=== PATIENT | female | born 1960 | race Caucasian/White ===

== ENCOUNTER 2017-08-03 09:06 | Emergency (ER) | payer SELFPAY ==
[2017-08-03 09:08] VITALS: BP 127/80; PULSE 88; RESP 16; TEMP 36.7; O2SAT 100; BMI 19.8
--- NOTE | 2017-08-03 09:36 | ED.DCSUM_ITS ---
- ER Visit Summary Date of Service: 08/03/17 Chief Complaint: Lump History of Present Illness: The patient is a 56 F who does report recent URI symptoms with congestion. Patient noted a lump behind her left ear 10 days ago. It is slowly increasing in size. The area is painful to palpation. She has not noted fever. Physical Examination: Vital signs are unremarkable. Patient sitting upright in bed no acute distress. She is nontoxic appearing. Head neck examination reveals TMs to be clear bilaterally. Posterior pharynx examination reveals mild posterior pharyngeal drainage. Uvula is midline. She does have bilateral anterior cervical lymphadenopathy. She also has a large left posterior auricular lymph node measuring approximately 3 cm in diameter. There is no overlying skin change noted. Heart is regular rate and rhythm. Lung sounds are clear. Abdomen is soft nontender. Test Results: [] Emergency Department Course and Treatment: Patient be treated with a course of clindamycin. As she does currently have URI symptoms, I believe this is all lymphadenitis from her illness. She was advised that she needs to follow-up to ensure resolution following course of antibiotics. Treatment Plan: [] Disposition: Discharge Impression: Cervical lymphadenitis This note was generated with [employer] dictation software. It may contain incorrect words, spelling, and punctuation that were not noted in review of the chart prior to signing ED Disposition - Plan for ED Patient: Chief Complaint: Other, Pain/Inj Referrals: Georgette Martines MD [Primary Care Provider] -
--- NOTE | 2017-08-03 09:36 | ED.DEP ---
ED Disposition - Plan for ED Patient: Disposition: Home or Assisted Living Chief Complaint: Other, Pain/Inj Instructions: ED Cervical Adenitis Abx Tx Prescriptions: Clindamycin [Cleocin] 300 mg PO 4X/DAY #80 capsule Referrals: eGorgette Martines MD [Primary Care Provider] - 1-2 Weeks
== END 2017-08-03 10:12 | disposition home or self-care (01) ==
PROVIDERS: Emergency Provider Emergency Medicine; Family Provider Internal Medicine; PCP Internal Medicine
DX: I88.9 Nonspecific lymphadenitis, unspecified (principal); Z72.0 Tobacco use
CPT/HCPCS: 99282

== ENCOUNTER → 2017-09-18 08:02 | Outpatient (CLI) | payer SELFPAY ==
[2017-09-18] VITALS (7 sets, daily range): BP systolic 72–101; BP diastolic 47–60; PULSE 79–98; RESP 16–18; TEMP 36.3–37.1; O2SAT 100; BMI 19.3
[2017-09-18] MEDS: Acetaminophen 325 MG Tablet 650 MG PO (08:09)
== END ==
PROVIDERS: Family Provider Internal Medicine; PCP Internal Medicine; Visit Provider Internal Medicine Hematology & Oncology
DX: Z51.89 Encounter for other specified aftercare (principal)
CPT/HCPCS: 36430; 86850; 86900; 86920; 86922; J7040; P9016; A4216

== ENCOUNTER → 2017-09-27 10:25 | Outpatient (CLI) | payer SELFPAY ==
[2017-09-27 10:41] VITALS: BP 106/77; PULSE 87; RESP 16; TEMP 36.7; O2SAT 100; BMI 20.4
[2017-09-27 11:20] VITALS: BP 122/74; PULSE 102; RESP 16; TEMP 36.5; O2SAT 99
[2017-09-27 12:25] VITALS: BP 130/74; PULSE 113; RESP 16; TEMP 38.4; O2SAT 98
[2017-09-27] MEDS: Acetaminophen 500 MG Tablet 1000 MG PO (12:58)
[2017-09-27 13:20] VITALS: BP 119/73; PULSE 109; RESP 16; TEMP 39.1; O2SAT 99
[2017-09-27 13:50] VITALS: BP 114/63; PULSE 114; RESP 16; TEMP 39.4; O2SAT 98
--- NOTE | 2017-09-27 14:05 | NURSING ---
MIKE LOCKE ACCOMPANYING PATIENT TO ED VIA WHEELCHAIR. PT STABLE, VERBALIZES UNDERSTANDING OF NEED FOR EVALUATION. PT NOTIFIED FAMILY.
== END ==
PROVIDERS: Visit Provider Internal Medicine Hematology & Oncology
DX: Z51.89 Encounter for other specified aftercare (principal)
CPT/HCPCS: 36430; 86850; 86900; 86920; 86922; J7040; P9016

== ENCOUNTER 2017-09-27 14:06 | Emergency (ER) | payer SELFPAY ==
[2017-09-27 14:07] VITALS: BP 99/61; PULSE 105; RESP 16; TEMP 37.4; O2SAT 98; BMI 20.4
--- NOTE | 2017-09-27 14:24 | RAD_ITS ---
STUDY: X-RAY CHEST REASON FOR EXAM: Female, 57 years old. Fever. Reaction to blood transfusion. TECHNIQUE: Single AP portable view of the chest. COMPARISON: Comparison is made with prior study dated August 22, 2013. FINDINGS: There is evidence of a 10 cm x 10.5 cm rounded soft tissue mass in the right upper lobe. Mild increased markings at the right lung base. A neoplastic process should be ruled out. There is no demonstrated pleural abnormality. Normal size heart. Normal mediastinum and lydia. Normal visualized pulmonary arteries. Normal visualized aortic arch and descending thoracic aorta. There is a dextroscoliosis of the thoracic spine. Normal visualized ribs, clavicles, and shoulders. There is no demonstrated abnormality of the visualized soft tissue structures of the upper abdomen. RAD/Chest 1 View (Portable) IMPRESSION: 10 cm x 10.5 cm rounded soft tissue mass in the right upper lobe with mild increased markings at the right lung base. A neoplastic process should be ruled out. Electronically Signed: Alistair Dee MD at 14:52 EDT Tel [phone], Service support ,
--- NOTE | 2017-09-27 14:25 | CT_ITS ---
STUDY: CT SOFT TISSUE NECK WITH CONTRAST REASON FOR EXAM: Female, 57 years old. Abscess RADIATION DOSAGE (If Supplied By Facility): CTDIvol = ( 13.42 ) mGy, DLP = ( 301.45 ) mGycm TECHNIQUE: The patient was scanned in a multi-detector CT scanner. High resolution transaxial imaging was performed following intravenous administration of 75 ml of Isovue 370 contrast material. Sagittal and coronal images were reconstructed. Individualized dose optimization techniques were used for this CT. COMPARISON: None. FINDINGS: Normal bilateral parotid glands. 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 Normal bilateral parapharyngeal spaces. Normal bilateral carotid spaces. Normal bilateral sublingual and submandibular glands and spaces. Normal visualized nasopharynx. Normal retropharyngeal space. Normal perivertebral space. Normal visualized bilateral faucial tonsils. The visualized tongue, tongue base and oropharynx are normal. There is a very large thick-walled heterogeneously enhancing mass with central low-attenuation in the left posterior triangle measuring approximately 9.8 x 6.3 x 7.7 cm extending from the level of the mastoid tip to the level of the thyroid which may be consistent with an abscess or necrotic adenopathy. Immediately anterior to the lesion at the level of the hyoid is a second smaller a similar-appearing lesion measuring 1.45 x 2.05 cm also possibly representing inflammatory process or node The mass is displacing the carotids and jugular vein anteriorly and towards the midline.. The visualized cervical lymph nodes (levels I-) are within normal size limits, and maintain normal morphology. There is no demonstrated solid or cystic mass lesion. There is no abnormal contrast enhancement. Normal epiglottis, bilateral vallecula and hypopharynx. The pre-epiglottic and paraglottic adipose spaces are normal. Normal visualized bilateral piriform sinuses, aryepiglottic folds, vocal cords, and arytenoid-cricoid articulations. Normal subglottic trachea. Normal bilateral lobes of the thyroid gland. Focal nodular pleural thickening or pleural-based mass is seen in the right apex Normal visualized paranasal sinuses. Cervical spine demonstrates mild spondylosis Incidental note is made of a small homogeneously enhancing lesion within the left temporal lobe of indeterminate etiology possibly representing meningioma as it appears to be contiguous with the temporal bone. However, metastatic lesion not excluded CT/Soft Tissue Neck WITH Contrast IMPRESSION: Findings which may be consistent with massive abscess or necrotic adenopathy in the left posterior triangle extending from the mastoid tip to the level of the thyroid. There is a second smaller similar-appearing lesion immediately anterior to the main mass at the level of the hyoid bone Incidental finding of enhancing nodule in the left temporal lobe. Cannot exclude metastatic disease versus meningioma. Recommend dedicated CT or MRI of the brain for further evaluation Electronically Signed: Jeromy Arreola MD at 16:34 EDT , Service support ,
[2017-09-27 15:00] LABS: Absolute Lymphocyte Count 2.01 X10^3/ul (0.83-4.51); Absolute Neutrophil Count 43.8 X10^3/uL (2.0-7.7); Basophil# 0.02 X10^3/uL; Eosinophil# 0.38 X10^3/uL; Eosinophils% 0.8 % (0-5); Hematocrit 23.8 % (37-47); Hemoglobin 7.6 g/dl (12.0-15.0); Lymphocyte # 2.01 X10^3/ul (4.0); Lymphocyte % 4.3 % (19-41); Mean Corp Hgb Conc 31.9 g/gl (32-36); Mean Corpuscular Hgb 29.7 pg (27.0-32.0); Monocyte# 0.78 X10^3/uL; Monocyte% 1.7 % (0-10); Neutrophil # 43.76 X10^3/uL (2.7-7.7); Neutrophil % 92.6 % (47-70); Platelet Count 411 K/mm3 (150-450); RBC Distribution Width CV 15.8 % (11.6-14.6); RBC Distribution Width SD 53.5 fl (35.1-43.9); Red Blood Count 2.56 M/mm3 (4.2-5.4)
--- NOTE | 2017-09-27 15:02 | NURSING ---
LAB CALLED WITH A CRITICAL OF A WBC OF 47.2 AND H OF 7.6
[2017-09-27 15:03] LABS: Differential Indicated SCAN CRITERIA MET; POSITIVE COUNT YES; POSITIVE DIFFERENTIAL YES; POSITIVE MORPHOLOGY NO; White Blood Count 47.2 K/mm3 (4.4-11.0)
[2017-09-27 15:06] LABS: International Normalized Ratio 1.1; Prothrombin Time (Protime)PT. 14.6 SECONDS (11.7-14.9)
[2017-09-27 15:07] LABS: Partial Thromboplast Time 29.6 Seconds (24.1-36.2)
[2017-09-27 15:18] LABS: ALB/GLOB Ratio 0.6 RATIO (0.9-2.4); AST(SGOT) 37 U/L (15-37); Alanine Aminotransfer ALT/SGPT 33 U/L (13-56); Albumin, Serum 2.1 g/dL (3.2-5.0); Alkaline Phosphatase 329 U/L (45-117); Anion Gap 8 (5-15); BUN 10 mg/dL (7-18); Chloride 102 mmol/L (98-107); Creatinine, Serum 0.45 mg/dL (0.55-1.02); EST Glomerular Filtration Rate 151 mL/min (>60); Est Glom Filt Rate - Afr Amer 183 mL/min (>60); Estimated Creatinine Clearance 117.53 ml/min; Globulin 3.7 g/dL (2.2-4.2); Glucose 96 mg/dL (74-106); Potassium 3.6 mmol/L (3.5-5.1); Protein, Total 5.8 g/dL (6.4-8.2); Sodium Level 136 mmol/L (136-145)
[2017-09-27] MEDS: 0.9% Normal Saline 1,000 ML IV.SOLN. 1600 ML IV (15:20)
[2017-09-27 15:24] LABS: Lactic Acid 1.6 mmol/L (0.4-2.0)
[2017-09-27 15:25] LABS: Differential Comment SCANNED
[2017-09-27] MEDS: oxyCODONE 5 MG Tablet 10 MG PO (15:42)
[2017-09-27 15:45] VITALS: BP 111/68; PULSE 91; RESP 20; TEMP 37.1; O2SAT 98
[2017-09-27 16:05] VITALS: BP 111/67; PULSE 91; RESP 17; O2SAT 95
--- NOTE | 2017-09-27 16:49 | ED.DCSUM_ITS ---
- ER Visit Summary Date of Service: 09/27/17 Chief Complaint: Fever History of Present Illness: The patient is a [address] Laws and Wily Cosme. She has a history of lung cancers with metastases and a large left neck mass. Patient was in infusion services getting a unit of packed red blood cells when she developed a fever today. She states her fever was 103? there. She was given Tylenol. States that she now feels back to her baseline and has no complaints. She reports that she has a sharp left-sided neck pain that is 10 out of 10 severity. She has not taken her Percocet yet today for this. Patient reports that she actually saw Dr. Page this morning for this left neck mass and it was felt that it was not an abscess. She is scheduled to see the radiation oncologist for focal radiation for this. Review of systems: General: No chills, cold sweats. Cardiovascular: No chest pain, palpitations. Respiratory: No shortness of breath, dyspnea on exertion. Gastrointestinal: No abdominal pain, nausea, vomiting, diarrhea, melena, or hematochezia. Genitourinary: No dysuria, frequency, hematuria. Skin: No rash. Neuro: No headache, numbness, weakness. Physical Examination: Vitals: Stable. Afebrile. General: Well-nourished and well-developed. Head: Normocephalic atraumatic. Neck: Large mass lateral left neck with a necrotic surface. There is no induration or fluctuance that is appreciable.. Cardiovascular: Regular rate and rhythm. No murmurs. Respiratory: No respiratory distress. Clear to auscultation bilaterally. Abdominal: Soft, nontender, nondistended, normal bowel sounds. No guarding, rebound, or peritoneal signs. Back: Nontender. Extremities: Nontender, no edema. Skin: Normal color, no rash. Neurologic: Alert and oriented ?3. Cranial nerves II through XII are intact. Normal strength and sensation. Psych: Normal affect. Test Results: CBC is remarkable for a white count of 47.2 (it was 77 yesterday) H&H is 7.6 and 23.8, segmented neutrophils are 93, lymphocytes of 4. Chem-7 more for creatinine 0.5 or 5. LFTs marked total protein 5.8 albumin 2.1. Alk phos of 329. INR is 1.1. PTT is 29.6. Lactic acid is 1.6. Clinical Impression(s) from Imaging Studies Chest X-Ray 09/27/17 14:24 IMPRESSION: 10 cm x 10.5 cm rounded soft tissue mass in the right upper lobe with mild increased markings at the right lung base. A neoplastic process should be ruled out. Electronically Signed: Alistair Dee MD at 14:52 EDT Tel [phone], Service support , Soft Tissue Neck CT 09/27/17 14:25 IMPRESSION: Findings which may be consistent with massive abscess or necrotic adenopathy in the left posterior triangle extending from the mastoid tip to the level of the thyroid. There is a second smaller similar-appearing lesion immediately anterior to the main mass at the level of the hyoid bone Incidental finding of enhancing nodule in the left temporal lobe. Cannot exclude metastatic disease versus meningioma. Recommend dedicated CT or MRI of the brain for further evaluation Electronically Signed: Jeromy Arreola MD at 16:34 EDT , Service support , Emergency Department Course and Treatment: Patient was treated with oxycodone is resting comfortably. She remains afebrile and feels well. She would like to go home. Treatment Plan: Patient was discussed with Dr. Pappas. She will be discharged instructions to follow-up with Dr. Pederson next week for further evaluation and treatment. Return to emerge department for fever, or any other concerns. Disposition: To home in improved and stable condition. Impression: 1. Lung cancer with metastases. 2. Febrile nonhemolytic transfusion reaction. This note was generated with [employer] software. It may contain incorrect words, spelling, and punctuation that were not noted in review of the chart prior to signing ED Disposition - Plan for ED Patient: Disposition: Home or Assisted Living Chief Complaint: Allergic Reaction Instructions: Blood and Blood Product Transfusions for Cancer Referrals: Ajay Pederson MD [STAFF PHYSICIAN] - Keep Shwetha appointment
[2017-09-27 16:57] VITALS: BP 116/68; PULSE 91; RESP 17; O2SAT 97
[2017-09-27 17:13] VITALS: BP 116/64; PULSE 91; RESP 18; O2SAT 99
[2017-09-27 17:34] LABS: Bacteria 0 SEEN /hpf (None Seen); Mucous, Urine 0 SEEN /hpf (<or=2+); Red Blood Cells-Urine 0 SEEN /hpf (0-5); Squamous Epithelial Cells - UA 0 SEEN /hpf (5-10)
[2017-09-27 17:58] LABS: Color, Urine Yellow (Yellow); Glucose, Dipstick Normal (Normal); Ketone-Dipstick Negative (Negative); Leukocyte Esterase-Dipstick Negative /ul (Negative); Nitrite-Dipstick Negative (Negative); Occult Blood-Urine Negative /ul (Negative); Protein-Dipstick Negative (Negative); Specific Gravity, Urine 1.005 (1.002-1.030); Urine Bilirubin Dipstick Negative (Negative); Urine Clarity Sl. Cloudy (Clear); Urine Urobilinogen Normal (Normal)
[2017-09-27 18:16] LABS: White Blood Cells 0-5 SEEN /hpf (0-5)
[2017-10-01 14:01] LABS: Pathologist Review Reviewed
== END 2017-09-27 17:15 | disposition home or self-care (01) ==
LOC: ED 14:53
PROVIDERS: Emergency Provider Emergency Medicine; PCP Physician Assistant
DX: R50.84 Febrile nonhemolytic transfusion reaction (principal); C34.90 Malignant neoplasm of unspecified part of unspecified bronchus or lung; C79.9 Secondary malignant neoplasm of unspecified site; Z87.891 Personal history of nicotine dependence
CPT/HCPCS: 70491; 71045; 80053; 81001; 83605; 85025; 85610; 85730; 87040; 87086; 99285; J7030; Q9967; A4216

== ENCOUNTER → 2017-10-08 12:35 | Outpatient (CLI) | payer SELFPAY ==
--- NOTE | 2017-10-08 12:35 | DT_ITS ---
This patient was seen during an EMR downtime October 07, 2017 - October 14, 2017. This patient may have a combination of paper and electronic documentation or all paper documentation. All documentation is viewable within the e-chart portion of [employer] for each patient visit.
[2017-10-15 15:34] LABS: Bacteria 0 SEEN /hpf (None Seen); Color, Urine Amber (Yellow); Glucose, Dipstick Normal (Normal); Ketone-Dipstick Negative (Negative); Leukocyte Esterase-Dipstick Negative /ul (Negative); Nitrite-Dipstick Negative (Negative); Occult Blood-Urine Negative /ul (Negative); Protein-Dipstick 30 mg/dl (Negative); Red Blood Cells-Urine 0 SEEN /hpf (0-5); Specific Gravity, Urine 1.015 (1.002-1.030); Squamous Epithelial Cells - UA 0 SEEN /hpf (5-10); Urine Bilirubin Dipstick 3 mg/dL (Negative); Urine Clarity Clear (Clear); Urine Urobilinogen Normal (Normal); White Blood Cells 0-5 SEEN /hpf (0-5)
[2017-10-15 15:35] LABS: Hyaline Cast 0-5 SEEN /lpf (0-5); Mucous, Urine RARE /hpf (<or=2+)
== END ==
PROVIDERS: Visit Provider Internal Medicine Hematology & Oncology
DX: R35.0 Frequency of micturition (principal)
CPT/HCPCS: 81001

== ENCOUNTER → 2017-10-24 09:30 | Outpatient (CLI) | payer SELFPAY ==
[2017-10-24] VITALS (7 sets, daily range): BP systolic 92–106; BP diastolic 64–69; PULSE 101–124; RESP 16–18; TEMP 36.4–37.7; O2SAT 97–98; BMI 16.8
[2017-10-24] MEDS: Acetaminophen 325 MG Tablet 650 MG PO (10:21)
== END ==
PROVIDERS: Family Provider Physician Assistant; PCP Physician Assistant; Visit Provider Internal Medicine Hematology & Oncology
DX: Z51.89 Encounter for other specified aftercare (principal); C34.90 Malignant neoplasm of unspecified part of unspecified bronchus or lung; D64.81 Anemia due to antineoplastic chemotherapy
CPT/HCPCS: 36430; 86850; 86900; 86920; 86922; J7040; P9016; A4216

== ENCOUNTER → 2017-11-01 10:58 | Outpatient (CLI) | payer SELFPAY ==
[2017-11-01 11:44] LABS: ALB/GLOB Ratio 0.4 RATIO (0.9-2.4); AST(SGOT) 94 U/L (15-37); Alanine Aminotransfer ALT/SGPT 83 U/L (13-56); Albumin, Serum 1.8 g/dL (3.2-5.0); Alkaline Phosphatase 1936 U/L (45-117); Anion Gap 10 (5-15); BUN 24 mg/dL (7-18); BUN/Creat Ratio 52.2 RATIO (10-20); Calcium,Total 8.4 mg/dL (8.5-10.1); Chloride 104 mmol/L (98-107); Creatinine, Serum 0.46 mg/dL (0.55-1.02); EST Glomerular Filtration Rate 149 mL/min (>60); Est Glom Filt Rate - Afr Amer 180 mL/min (>60); Globulin 4.4 g/dL (2.2-4.2); Glucose 102 mg/dL (74-106); Potassium 4.1 mmol/L (3.5-5.1); Protein, Total 6.2 g/dL (6.4-8.2); Sodium Level 139 mmol/L (136-145)
== END ==
LOC: LABSPEC 10:59
PROVIDERS: Visit Provider Internal Medicine Hematology & Oncology
DX: C77.0 Secondary and unspecified malignant neoplasm of lymph nodes of head, face and neck (principal)
CPT/HCPCS: 80053

== ENCOUNTER 2017-11-02 09:04 | Outpatient (CLI) | payer SELFPAY ==
[2017-11-02] VITALS (10 sets, daily range): BP systolic 86–101; BP diastolic 52–70; PULSE 99–108; RESP 15–17; TEMP 36.9–37.2; O2SAT 95–99
[2017-11-02] MEDS: 0.9% NaCl Peripheral Flush Adult/Peds IV (12:56)
== END 2017-11-02 15:48 | disposition home or self-care (01) ==
LOC: MEDOUTP 09:05 → PCU 09:05
PROVIDERS: Family Provider Physician Assistant; PCP Physician Assistant; Visit Provider Internal Medicine Hematology & Oncology
DX: Z51.89 Encounter for other specified aftercare (principal); D64.81 Anemia due to antineoplastic chemotherapy; C78.00 Secondary malignant neoplasm of unspecified lung
CPT/HCPCS: 36430; 86850; 86900; 86920; 86922; J7040; P9016; A4216

== ENCOUNTER 2017-11-07 11:10 | Emergency (ER) | payer SELFPAY ==
[2017-11-07] VITALS (7 sets, daily range): BP systolic 108–124; BP diastolic 68–89; PULSE 137–154; RESP 24–28; TEMP 36.6; O2SAT 74–90; BMI 15.4
--- NOTE | 2017-11-07 11:54 | RAD_ITS ---
STUDY: X-RAY CHEST REASON FOR EXAM: Female, 57 years old. Stage IV lung carcinoma. Shortness of breath. TECHNIQUE: AP and lateral views of the chest. COMPARISON: Comparison is made with prior examination dated September 27, 2017. FINDINGS: EKG electrodes are seen. There is a 13.4 cm x 10.2 cm mass in the right upper lobe. This has progressed as compared to prior study. Is also evidence of increased markings at the left lung base suggestive of atelectasis and/or infiltrate. Normal size heart. Normal mediastinum and lydia. Normal visualized pulmonary arteries. There is atherosclerotic calcification of the aortic arch with tortuosity. There is a dextroscoliosis of the thoracic spine. Normal visualized ribs, clavicles, and shoulders. There is no demonstrated abnormality of the visualized soft tissue structures of the upper abdomen. RAD/Chest PA and Lateral IMPRESSION: There has been a progression in the right upper lobe mass. New increased markings at the left lung base suggestive of either early infiltrate and/or atelectasis Electronically Signed: Alistair Dee MD at 13:02 EDT Tel [phone], Service support ,
--- NOTE | 2017-11-07 11:55 | EKG12_ITS ---
Test Reason : SOB Blood Pressure : / mmHG Vent. Rate : 137 BPM Atrial Rate : 137 BPM P-R Int : 116 ms QRS Dur : 068 ms QT Int : 294 ms P-R-T Axes : 070 064 181 degrees QTc Int : 443 ms Sinus tachycardia Right atrial enlargement ST & T wave abnormality, consider inferior ischemia ST & T wave abnormality, consider anterolateral ischemia Abnormal ECG Confirmed by LORETTA LOMELI, CHRISTY ([id number]), international editorial producer GERARDO BLAS ([id number]) on 11/11/2017 2:24:48 PM Referred By: LACEY Confirmed By:CHRISTY BURGOS MD
--- NOTE | 2017-11-07 11:58 | CM.ED ---
CM referred by RN for discharge planning needs. Patient tells me that she would like to have [facility] setup. I informed her that I can make a referral for Hospice to evaluate the patient in the ED. Patient states agreement for referral and states Get it setup. updated on plan. I spoke with [place], at Hospice. Patient information faxed to Hospice. Hospice will contact Dr. Ayala's office and will come to ED to evaluate patient.
--- NOTE | 2017-11-07 12:00 | ED.RN ---
PT CONTINUES TO REQUEST NO VISITORS OTTHER THEN BE ALLOWED INTO THE ROOM. FAMILY CONTINUES TO ENTER ROOM DESPITE BEING TOLD PT WISHES. PT AGAIN STATES PLEASE JUST MY EMRE. PT TEARFUL. THIS RN ALSO CONTACTED CASE MANAGEMENT TO HELP PT GET ESTABLISHED WITH HOSPICE
[2017-11-07] MEDS: Albuterol 2.5 MG/3 ML VIAL.NEB. INHALATION (12:17)
[2017-11-07] MEDS: Ipratropium/Albuterol Sulfate 3 ML AMPUL.NEB INHALATION (12:17)
--- NOTE | 2017-11-07 13:36 | ED.VISSUMM ---
- ER Visit Summary Date of Service: 11/07/17 Chief Complaint: [] History of Present Illness: The patient is a 57 F [] Physical Examination: [] Test Results: [] Emergency Department Course and Treatment: [] Treatment Plan: [] Disposition: [] Impression: [] This note was generated with [employer] dictation software. It may contain incorrect words, spelling, and punctuation that were not noted in review of the chart prior to signing ED Disposition - Plan for ED Patient: Chief Complaint: Shortness of Breath Referrals: Leticia Cosme PA [Primary Care Provider] -
[2017-11-07] MEDS: levoFLOXacin 750 MG Tablet PO (13:51)
[2017-11-07] MEDS: oxyCODONE 5 MG Tablet 10 MG PO (13:51)
--- NOTE | 2017-11-07 14:00 | ED.DCSUM_ITS ---
- ER Visit Summary Date of Service: 11/07/17 Chief Complaint: [] History of Present Illness: The patient is a 57 F [] Physical Examination: [] Test Results: [] Emergency Department Course and Treatment: [] Treatment Plan: [] Disposition: [] Impression: [] This note was generated with [employer] dictation software. It may contain incorrect words, spelling, and punctuation that were not noted in review of the chart prior to signing ED Disposition - Plan for ED Patient: Chief Complaint: Shortness of Breath Referrals: Leticia Cosme PA [Primary Care Provider] -
--- NOTE | 2017-11-07 14:01 | ED.VIS.GEN ---
History of Present Illness Chief Complaint: Shortness of Breath Informant: Patient, Family Onset: Today Context: Gradual Onset Timing: Continuous Quality: sob Location: chest Current Severity: Severe Maximum Severity: Severe Worsened by: coughing Relieved by: getting some sputum out Associated Symptoms: malaise. prod cough. Narrative: Has stage IV lung cancer with metastases throughout her abdomen, and her brain, and significantly enlarged lymph nodes in her neck. Had one bout of chemotherapy and waiting to see her oncologist today to talk about more, however she and family are considering hospice heavily. No chest pain. - Past Medical History (1) Stage 4 lung cancer Status: Chronic Past Medical History - Allergies and Home Meds Allergies/Adverse Reactions: Allergies No Known Allergies Allergy (Verified 09/27/17 11:11) Primary Care Physician: Leticia Cosme PA [Primary Care Provider] - Surgical History: no surgical history, noncontributory, - - Eye surgery, ganglion cyst Smoking Status: Current every day smoker Review of Systems All systems negative except as indicated General: Reports: Malaise, Weight loss. Denies: Chills, Fever Cardiovascular: Denies: Chest pain Respiratory: Reports: Dyspnea, Cough, Sputum Gastrointestinal: Reports: Abdominal pain. Denies: Nausea, Vomiting, Diarrhea Musculoskeletal: Reports: Swelling - Bilateral lower extremities Physical Exam Vital Signs/Narrative: Vital Signs Temp Pulse Resp BP Pulse Ox 11/07/17 12:17 137 H 24 H 11/07/17 11:22 24 H 90 11/07/17 11:11 98 F 140 H 28 H 119/89 H 74 Inital Vital Signs reviewed: Yes General: Well developed, Cachectic Head: Normocephalic, Atraumatic Eyes: Perrl, EOMI ENT: Moist mucous membranes, No rhinorrhea Neck: Supple, Nontender, No JVD, - - Softball sized mass left side of neck, nontender, with superficial necrotic tissue centrally. Seeping serous fluid, no abscess or pus. Nontender lymph node right anterior base of neck that may be a virchows node. Trachea midline without deviation. Cardiovascular: Regular rate, Regular rhythm, Tachycardia Respiratory: Chest nontender, Diminished - Throughout right side more than the left, Decreased Air Movement, Retractions Abdomen: Soft, Nondistended, Normal bowel sounds, Tender - Diffusely. Negative for: Guarding, Rebound tenderness Back: Nontender, Normal Inspection Extremities: Nontender, Edema - 1+ bilateral lower extremities symmetrically. No calf tenderness. Skin: Normal color, No rash Neurological: Alert, Oriented x3, Cranial nerves II-XII grossly intact, Normal Strength, Normal Sensation Psychological: - - Anxious. Appropriate for age. Diagnostic/Tx/Re-eval Clinical Impression(s) from Imaging Studies Chest X-Ray 11/07/17 11:54 IMPRESSION: There has been a progression in the right upper lobe mass. New increased markings at the left lung base suggestive of either early infiltrate and/or atelectasis Electronically Signed: Alistair Dee MD at 13:02 EDT Tel [phone], Service support , - Rhythm Strip Rhythm Strip: Sinus Tach Rate: 135 Ectopy: None - EKG 1 Interpretation: No Acute Injury Pattern, Sinus Tachycardia, Non-Specific ST Changes - Medical Decision Making Chest x-ray shows developing lower lobe pneumonia and enlarging neoplasm in right lung. She feels better after nebulizer treatments and is able to converse. Her oxygen levels are in the 90s with supplementation. We discussed thoroughly along with family. She wishes to be DNR-Comfort Care, and wants hospice. They were consulted, they saw her in the emergency department and are going to accept her to inpatient hospice here locally. She will be discharged to hospice and started on Levaquin, which I coordinated with hospice personnel. ED Disposition - Plan for ED Patient: Disposition: Home or Assisted Living Chief Complaint: Shortness of Breath Diagnosis: Community acquired pneumonia, Sepsis, Stage 4 lung cancer, Hypoxemia Instructions: ED Pneumonia Adult
== END 2017-11-07 15:46 | disposition short-term general hospital (02) ==
PROVIDERS: Emergency Provider Emergency Medicine; Family Provider Physician Assistant; PCP Physician Assistant
DX: A41.9 Sepsis, unspecified organism (principal); J18.9 Pneumonia, unspecified organism; C34.90 Malignant neoplasm of unspecified part of unspecified bronchus or lung; R09.02 Hypoxemia; F17.200 Nicotine dependence, unspecified, uncomplicated
CPT/HCPCS: 71046; 93005; 94640; 99284